=== PATIENT | female | born 1945 | race Caucasian/White ===

== ENCOUNTER → 2017-08-21 | Outpatient (CLI) | payer OTHER, BC | LOC: RAD 00:31 | DX: Z12.31 Encounter for screening mammogram for malignant neoplasm of breast (principal) ==

== ENCOUNTER → 2018-08-22 | Outpatient (CLI) | payer OTHER, BC | LOC: RAD 02:23 | DX: Z12.31 Encounter for screening mammogram for malignant neoplasm of breast (principal) ==

== ENCOUNTER → 2019-08-24 | Outpatient (CLI) | payer OTHER, BC | LOC: RAD 01:41 | DX: Z12.31 Encounter for screening mammogram for malignant neoplasm of breast (principal) ==

== ENCOUNTER → 2019-08-27 | Outpatient (CLI) | payer OTHER, BC | LOC: RAD 09:15 | DX: R92.8 Other abnormal and inconclusive findings on diagnostic imaging of breast (principal) ==

== ENCOUNTER → 2020-08-29 | Outpatient (CLI) | payer OTHER, BC | LOC: BC 08:58 | PROVIDERS: ATTEND Internal Medicine | DX: Z12.31 Encounter for screening mammogram for malignant neoplasm of breast (principal) ==

== ENCOUNTER → 2021-08-30 | Outpatient (CLI) | payer OTHER, BC | LOC: BC 08:20 | PROVIDERS: ATTEND Internal Medicine | DX: Z12.31 Encounter for screening mammogram for malignant neoplasm of breast (principal); N64.89 Other specified disorders of breast ==